=== PATIENT | male | born 1955 | race Two or more races ===

== ENCOUNTER → 2024-09-30 | Outpatient (CLI) | payer MEDICARE, SELFPAY ==
--- NOTE | 2024-09-30 09:10 | XR_ITS ---
Examination: Bilateral hips, AP pelvis, 5 views Technique: AP, lateral views both hips, AP pelvis, 5 views Exam date and time: September 30, 2024 0919 hours INDICATIONS: Bilateral hip pain 40 years FINDINGS: Total right hip arthroplasty. 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
== END | disposition home or self-care (01) ==
PROVIDERS: PCP Internal Medicine; Referring Provider Internal Medicine; Visit Provider Internal Medicine
DX: M16.12 Unilateral primary osteoarthritis, left hip (principal); M25.551 Pain in right hip
CPT/HCPCS: 73522

== ENCOUNTER → 2025-02-28 | Outpatient (CLI) | payer MEDICARE, MEDICAID, SELFPAY ==
--- NOTE | 2025-02-28 09:00 | XR_ITS ---
Examination: MRI thoracic spine without contrast. Date and time of exam: February 28, 2025 0859 hours INDICATIONS: Patient fell out of a tree age 10 with persistent back pain Technique: Multiple sagittal and axial images of the thoracic spine have been obtained. T1 weighted localizer, sagittal T2 weighted images, TR 30-50, TE 148, T1 weighted sagittal images, TR 650, TE 14, T2-weighted transverse images, TR 6770, TE 142 Findings: Adequate alignment thoracic vertebral bodies on the lateral view Diffuse advanced thoracic degenerative disc disease No acute thoracic fracture Adequate marrow signal thoracic vertebral bodies Minimal 1 to 2 mm diffuse thoracic disc bulges, no impingement upon the thoracic cord No localized enlargement thoracic cord Impression: Diffuse advanced thoracic degenerative disc disease No acute thoracic fracture No thoracic disc protrusion impinging upon the thoracic cord
== END | disposition home or self-care (01) ==
LOC: SMRI 08:26
PROVIDERS: PCP Internal Medicine; Referring Provider Internal Medicine; Visit Provider Internal Medicine
DX: M51.34 Other intervertebral disc degeneration, thoracic region (principal)
CPT/HCPCS: 72146

== ENCOUNTER → 2025-04-01 | Outpatient (CLI) | payer MEDICARE, MEDICAID, SELFPAY ==
--- NOTE | 2025-04-01 09:00 | XR_ITS ---
Examination: MRI lumbar spine without contrast Date and time of exam: April 01, 2025 1040 hours INDICATIONS: Low back pain 15 years radiating into the legs 10 years COMPARISON: April 05, 2023 Technique: Multiple MRI axial and sagittal sections lumbar spine. Sagittal T2-weighted images, TR 3500, TE 118 T1 weighted transverse sections, TR 688 T8.5, T2-weighted sagittal sections T1 weighted sagittal sections TR 621, TE 30 T2 axial sections, TR 4, 190, TE 84. Findings: Adequate alignment lumbar vertebral bodies on the lateral view Advanced diffuse lumbar disc narrowing Diffuse lumbar disc dislocation L5-S1 partially extruded 6 mm central lumbar disc bulge extending to the foraminal regions with mild bilateral L5 ganglionic compression L4-L5 6 mm central lumbar disc bulge extending to the foraminal regions with severe left L4 ganglionic compression L3-L4 4 mm central lumbar disc bulge extending to the right foraminal region with mild right L3 ganglionic compression L2-L3 foraminal disc bulges but no ganglionic compression L1-L2 no disc protrusions IMPRESSION: L5-S1 partially extruded 6 mm central lumbar disc bulge with mild bilateral L5 ganglionic compression L4-L5 6 mm central lumbar disc bulge with severe left L4 ganglionic compression L3-L4 4 mm central lumbar disc bulge with mild right L3 ganglionic compression
--- NOTE | 2025-04-01 09:30 | XR_ITS ---
Examination: MRI cervical spine without intravenous contrast Date and time of exam: April 01, 2025 1040 hours Comparison April 05, 2023 Technique: Multiple axial and sagittal sections of the cervical spine to been obtained. T2 weighted sagittal sections, TR 3, 270, TE 117 T1-weighted sagittal sections, TR 500, TE 11 T1-weighted axial sections, TR 607, TE 12, axial sections TR 18, TE 27 and T2 weighted transverse sections, TR 3920, TE 122. 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, the odontoid is displaced posteriorly at least 11 mm relative to the body of C2 Diffuse cervical disc desiccation No acute cervical fracture Moderate disc narrowing C4-C5, C5-C6 advanced disc narrowing C6-C7 C7-T1 No localized enlargement cervical cord C2-C3 advanced right neural foraminal stenosis C3-C4 advanced right neural foraminal stenosis C4-C5 advanced bilateral neural foraminal stenosis 2 mm central subarticular osteophyte disc complex C5-C6 3 mm central subarticular osteophyte disc complex, moderate bilateral neural foraminal stenosis C6-C7 uncinate process hypertrophy advanced bilateral neural foraminal stenosis C7-T1 moderate bilateral neural foraminal stenosis IMPRESSION: Again noted old ununited fracture at the base of the odontoid, the odontoid is displaced posteriorly at least 11 mm relative to the body of C2, no impingement upon the cervical cord C2-C3, C3-C4 advanced right neural foraminal stenosis C4-C5 C6-C7 advanced bilateral neural foraminal stenosis C5-C6, C7-T1 moderate bilateral neural foraminal stenosis
== END | disposition home or self-care (01) ==
PROVIDERS: PCP Internal Medicine; Referring Provider Internal Medicine; Visit Provider Internal Medicine
DX: M51.26 Other intervertebral disc displacement, lumbar region (principal); M51.27 Other intervertebral disc displacement, lumbosacral region; G95.20 Unspecified cord compression; M48.02 Spinal stenosis, cervical region; S12.111A Posterior displaced Type II dens fracture, initial encounter for closed fracture; X58.XXXA Exposure to other specified factors, initial encounter
CPT/HCPCS: 72141; 72148

== ENCOUNTER 2025-05-01 08:30 | Outpatient (RCR) | payer MEDICARE, MEDICAID, SELFPAY ==
--- NOTE | 2025-04-21 14:42 | PT.OIERPT ---
PT OP Initial Eval Patient Information Outpatient Physical Therapy Treatment Date: 04/21/25 Visit Reasons: low back pain Medical Diagnosis: M54.50 Treatment Dx #1: Back Pain Start of Care: 04/21/25 Date of Onset: 20 years ago Smoking Status Smoking Status: Current every day smoker Cessation Counseling Provided: CATARINO was advised that quitting smoking is the single most important factor to protect the health of themselves and their family. Discussed the benefits of quitting smoking with patient. Encouraged patient to quit smoking and provided Cessation assistance materials and resources. Tobacco Use: Cigarette Years smoked: 30 Are you interested in quitting?: No Would you like additional Smoking Cessation Counseling?: No Initial Assessment Subjective: Pt is a 69 y/o male reports of chronic back pain with BLE weakness started ~ 20 years ago. Pt mentioned he's been using pain medication for several years to help with pain. Pt's most recent MRI showed multiple disc bulge. Pt has limitation with sitting, standing, walking, chores, self care, cooking, cleaning, and performing recreational activities. Objective: L/S AROM (in sitting): all motions are 50 % towards end range with pain Hip PROM: all motions are WFL except IR Hip MMTs: grossly 3/5 Special Test (+) slump Assessment: Pt demonstrate back pain with mobility deficits leading to difficulty with ADLs. Pt will attempt physical therapy if pain persist Pt will be refer back to provider for further consultation. Short Term and [facility] Goals 1) Increase L/S AROM WFL in 6 wks to be able to perform chores 2) Decrease back pain to 2/10 in 6 wks to be able to sit and stand more than 30 mins 3) Increase core strength WFL in 6 wks to be able to perform recreational activities 4) Increase hip MMTs grossly to 4-/5 in 6 wks to be able to walk more than 30 mins 5) Indep with HEP Treatment Plan 1) Manual Therapy 2) Therapeutic Activities 3) Therapeutic Exercises 4) Modalities (ice, heat) 5) Gait Training 6) Balance Training Frequency and Duration: 2 x wk for 6 wks Certification Dates: 04/21/25 to 07/22/25 Procedure Charges OP PT Eval Mod Complex 30 minutes: Yes
--- NOTE | 2025-04-28 12:56 | PT.ODAYNRPT ---
PT Outpatient Daily Note OP Daily Note Outpatient Physical Therapy Treatment Date: 04/28/25 Visit Reasons: low back pain Subjective: Pt's is worsen. Pt notice more pain and stiffness this past weekend. Objective: Please see flow chart for list of ther ex performed Assessment: tolerate exercises with minimal pain; frequent cues give to correct form with LTR and SKTC exercises Plan: Continue with PT Length of Time (minutes) of Treatment: 30 Minutes Procedure Charges Therapeutic Exercise 30 minutes: Yes
--- NOTE | 2025-05-01 08:54 | PTNOTE_ITS ---
PT Outpatient Daily Note OP Daily Note Outpatient Physical Therapy Treatment Date: 05/01/25 Visit Reasons: low back pain Subjective: Pt's mentioned minimal changes with pain and symptoms since starting physical therapy. 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 Pt gave verbal understanding. Pt continues to exhibit decrease mobility due to lower back pain with all exercises and heat help patient tolerate exercises Plan: Continue with PT Length of Time (minutes) of Treatment: 30 Minutes Procedure Charges Therapeutic Exercise 30 minutes: Yes
== END 2025-05-01 23:59 | disposition home or self-care (01) ==
LOC: CPTX 08:30
PROVIDERS: PCP Internal Medicine; Referring Provider Internal Medicine; Visit Provider Internal Medicine
DX: M54.50 Low back pain, unspecified (principal); R53.1 Weakness; G89.29 Other chronic pain; Z71.6 Tobacco abuse counseling; F17.210 Nicotine dependence, cigarettes, uncomplicated
CPT/HCPCS: 97110; 97162

== ENCOUNTER 2025-05-08 08:28 | Outpatient (RCR) | payer MEDICARE, MEDICAID, SELFPAY ==
--- NOTE | 2025-05-08 09:08 | PTNOTE_ITS ---
PT Outpatient Daily Note OP Daily Note Outpatient Physical Therapy Treatment Date: 05/08/25 Visit Reasons: Back pain Subjective: Pt reports LBP is high today, pt shared pain is worse today more than usual. Objective: Please see flow sheet for ther ex list. Assessment: Pt demonstrates poor activity tolerance due to pain response and demonstrates excessive trunk flexion. Plan: Continue with POC. Length of Time (minutes) of Treatment: 30 Minutes [employer]PRESENTATIVE Service Modifier Method I: Divide the number of min of care provided by the V[employer] REPRESENTATIVE/TRINITY by the total min of care provided then multiply by 100. If greater than 11 percent modifier is required. Method II: Divide the total time of care provided to patient by 10 (round to the nearest whole number) and add 1 min. to set the minimum time requirement. If treatment total was 60 min., then 10% of 6 min PT CQ modifier applied: CQ Modifier applied Procedure Charges Therapeutic Exercise 30 minutes: Yes
--- NOTE | 2025-05-16 08:43 | PT.ODS1RPT ---
PT OP Progress/Discharge Note Date of Service: 05/16/25 Progress Note/DC Note Progress Note/Discharge Note: DC Note Patient Information Visit Reasons: Back pain Service Discharge Date: 05/16/25 Status Assessment: Pt has been seen for 3 visits (eval + 2 visits). Pt last treated on 05/01/25. Pt no showed 05/06, 05/08, 05/12, and 05/14 appt. Pt called to cx all pending PT due to physical therapy not helping. Pt did not meet set goals in therapy; thank you for your referrals
== END 2025-06-01 23:59 | disposition home or self-care (01) ==
LOC: CPTX 08:28
PROVIDERS: PCP Internal Medicine; Referring Provider Internal Medicine; Visit Provider Internal Medicine
DX: M51.360 Other intervertebral disc degeneration, lumbar region with discogenic back pain only (principal); R26.2 Difficulty in walking, not elsewhere classified; G89.29 Other chronic pain
CPT/HCPCS: 97110